=== PATIENT | female | born 1940 | race Caucasian/White ===

== ENCOUNTER 2021-02-06 17:53 | Emergency (ER) | payer OTHER ==
[~2021-02-06] VITALS: Ht 149.9 cm; Wt 82.3 kg
[~2021-02-06 17:53] MED LIST: ARICEPT10 M1 PO; CEFDINIR300 MG PO; DILTIAZEM 24HR300 M2 PO; ELIQUIS5 MG PO; FLONASE 0.05%50 MCG NASAL; GABAPENTIN600 M1 PO; GLYBURIDE 5 MG T5 M1 PO; LIPITOR 20 MG T20 M1 PO; LISINOPRIL20 MG PO; MELATONIN5 M1 PO; METFORMIN HCL500 M3 PO; MUCINEX600 MG PO; NORVASC5 MG PO; PREDNISONE 10 M10 M1 PO; PULMICORT0.5 MG/2 M INH; SEROQUEL 25 MG25 M1 PO; TORSEMIDE10 MG PO; TRAMADOL 50 MG50 MG PO; TYLENOL EXTRA500 MG PO; ZOLOFT100 MG PO
[2021-02-06] MEDS ORDERED: DORYX MPC120 MG PO (18:04)
[2021-02-06] MEDS ORDERED: GLIPIZIDE 10 MG10 MG PO (18:06)
[2021-02-06 18:50] LABS: ABSOLUTE BASOPHILS 0.1 thou/uL (0.0-0.2); ABSOLUTE EOSINOPHILS 0.1 thou/uL (0.0-0.7); ABSOLUTE LYMPHOCYTES 1.6 thou/uL (0.8-5.3); ABSOLUTE MONOCYTES 0.6 thou/uL (0.0-1.2); ABSOLUTE NEUTROPHILS 3.3 thou/uL (1.6-8.1); BASOPHILS 1.2 %; EOSINOPHILS 1.9 %; HEMATOCRIT 38.8 % (37.0-47.0); HEMOGLOBIN 12.8 gm/dL (12.0-15.0); LYMPHOCYTES 28.5 %; MCH 27.7 pg (26.0-34.0); MONOCYTES 9.7 %; MPV 8.3 fl. (7.2-11.1); NUCLEATED RBCS 0 /100WBC; PLATELET COUNT* 263 thou/uL (150-400); POLYS 58.7 %; RBC 4.63 mil/uL (4.20-5.00); RDW-CV 17.1 % (10.5-14.5); WBC 5.7 thou/uL (4.0-11.0)
[2021-02-06 19:04] LABS: CALCIUM 8.5 mg/dL (8.5-10.1); POTASSIUM 3.9 mmol/L (3.5-5.1)
[2021-02-06 19:08] LABS: ALCOHOL < 10 mg/dL (<10); SALICYLATE < 2.8 mg/dL (2.8-20.0)
[2021-02-06 19:11] LABS: ACETAMINOPHEN < 2 ug/mL (10-30); ALBUMIN 2.9 g/dL (3.4-5.0); TOTAL BILIRUBIN 0.3 mg/dL (<0.1-1.0); TOTAL PROTEIN 6.3 g/dL (6.4-8.2)
[2021-02-06 19:19] LABS: URINE BILIRUBIN NEGATIVE (Negative); URINE BLOOD NEGATIVE (Negative); URINE CLARITY CLEAR; URINE COLOR YELLOW; URINE GLUCOSE-RANDOM NEGATIVE (Negative); URINE KETONES NEGATIVE (Negative); URINE LEUKOCYTES-REFLEX NEGATIVE (Negative); URINE NITRITE-REFLEX NEGATIVE (Negative); URINE PROTEIN NEGATIVE (Negative); URINE UROBILINOGEN 0.2 E.U./dl (0.2-1.0)
[2021-02-06 19:40] LABS: AMP/METHAMP Negative (Negative); BARBITURATES Negative (Negative); BENZODIAZEPINES POSITIVE (Negative); COCAINE Negative (Negative); METHADONE Negative (Negative); OPIATES Negative (Negative); PCP Negative (Negative); THC Negative (Negative)
[2021-02-06 22:21] VITALS: BP 148/58
== END 2021-02-06 22:21 | disposition home or self-care (01) ==
LOC: M.ERS 17:53
PROVIDERS: Family Medicine
DX: F03.91 Unspecified dementia, unspecified severity, with behavioral disturbance (principal); E11.40 Type 2 diabetes mellitus with diabetic neuropathy, unspecified; I10 Essential (primary) hypertension; I48.91 Unspecified atrial fibrillation; E66.9 Obesity, unspecified; Z68.36 Body mass index [BMI] 36.0-36.9, adult; Z85.3 Personal history of malignant neoplasm of breast; Z88.6 Allergy status to analgesic agent; Z88.0 Allergy status to penicillin; Z91.040 Latex allergy status; Z88.8 Allergy status to other drugs, medicaments and biological substances; Z88.5 Allergy status to narcotic agent; Z87.440 Personal history of urinary (tract) infections; Z79.899 Other long term (current) drug therapy